=== PATIENT | male | born 1995 | race Caucasian/White ===

== ENCOUNTER 2016-10-31 22:29 | Emergency (ER) | payer SELFPAY ==
[~2016-10-31 22:29] MED LIST: LORTA5 PO
[2016-10-31 22:32] VITALS: BP 133/72; PULSE 97; RESP 16; TEMP 98.7; O2SAT 100
[2016-10-31] MEDS ORDERED: DOXY100C PO (22:56)
[2016-10-31] MEDS ORDERED: BACT800T5 PO (22:56)
[2016-10-31] MEDS ORDERED: DOXYCYCLINE HYCLATE 100 MG CAP PO ONE (23:00)
[2016-10-31] MEDS ORDERED: SULFAMETHOXAZOLE-TRIMETHOPRIM DS 800-160 MG TAB PO ONE (23:00)
--- NOTE | 2016-10-31 23:00 | PD ---
HPI Chief Complaint: Skin Problem Time Seen by Provider: 22:57 Travel History International Travel<30 days: No Contact w/Intl Traveler<30days: No Traveled to known affect area: No History of Present Illness HPI 21-year-old white male presents to emergency department with complaints of painful red lumps that up presented itself now for last several days. There are on his upper and lower extremities as well as his groin and buttocks. He denies any drugs area and he denies any history of abscess in the past. No recent illness. No fever chills. No drainage. PFSH Past Medical History Medical History: Denies Significant Hx Diminished Hearing: No Immunizations Current: Yes Tetanus Vaccination: < 5 Years Past Surgical History Surgical History: No Previous Surgery Social History Alcohol Use: No Tobacco Use: Yes Substance Use: No Allergies-Medications (Allergen,Severity, Reaction): Coded Allergies: No Known Allergies (Verified , 10/31/16) Reported Meds & Prescriptions Reported Meds & Active Scripts Active Doxycycline Hyclate 100 Mg Cap 100 Mg PO BID Bactrim DS (Sulfamethoxazole-Trimethoprim) 800-160 Mg Tab 1 Tab PO BID Review of Systems Except as stated in HPI: all other systems reviewed are Neg Physical Exam Narrative GENERAL: This is a well-nourished, well-developed patient, in no apparent distress. SKIN: Patient has multiple papular erythematous lesions on his upper and lower extremities as well as his buttocks and groin. These range in size from 1-3 cm. There is tender, red, indurated. There is no fluctuance or pointing. A few have small superficial pustular centers. HEAD: Atraumatic. Normocephalic. EYES: PERRL, EOMI, no discharge or injection. No scleral icterus. EARS: Clear NOSE: Nasal turbinates appear normal. THROAT: Mucosa pink and moist. Airway patent. NECK: Trachea midline. supple, moves head freely. LUNGS: Clear to auscultation. CV: Regular in rhythm. ABDOMEN: Soft nontender. EXT: No clubbing cyanosis or edema. Data Data Last Documented VS Vital Signs Date Time Temp Pulse Resp B/P Pulse Ox O2 Delivery O2 Flow Rate FiO2 10/31/16 22:32 98.7 97 16 133/72 100 Room Air Orders Sulfamet-Trimeth Ds 800-160 Mg (Bactrim (10/31/16 23:00) Doxycycline (Vibramycin) (10/31/16 23:00) MDM Medical Decision Making Medical Screen Exam Complete: Yes Emergency Medical Condition: Yes Medical Record Reviewed: Yes Differential Diagnosis MDM: High Differential diagnoses: Abscess, folliculitis, cellulitis, lymphangitis, abrasion, contact dermatitis Narrative Course Patient has multiple superficial abscesses developing. He is given Bactrim DS and doxycycline. He is encouraged to use warm compresses and ichthammol. Diagnosis Primary Impression: multiple superficial abscesses Patient Instructions: General Instructions Additional Instructions: Rest. Elevation. keep clean and dry. Warm compresses and ichthammol. Daily wound care with soap, water and Neosporin. Three Advil every 6 hours. Doxycycline, Septra DS Follow-up with a primary care doctor in one week. Return to the ER for any problems. Med/Other Pt SpecificInfo: Prescription(s) given Scripts Doxycycline Hyclate 100 Mg [id number] Mg PO BID #20 CAP Prov:Gladis De Luna DO 10/31/16 Sulfamethoxazole-Trimethoprim (Bactrim DS)800-160 Mg Tab1 Tab PO BID #20 TAB Prov:Gladis De Luna DO 10/31/16 Disposition: 01 DISCHARGE HOME Condition: Stable Ed Esteban Oct 31, 2016 23:00
== END 2016-10-31 23:28 | disposition home or self-care (01) ==
LOC: NEPK 22:29
DX: L02.416 Cutaneous abscess of left lower limb (principal); L02.415 Cutaneous abscess of right lower limb; L02.414 Cutaneous abscess of left upper limb; L02.413 Cutaneous abscess of right upper limb; L02.214 Cutaneous abscess of groin; L02.31 Cutaneous abscess of buttock
CPT/HCPCS: 99284